=== PATIENT | female | born 2000 | race Hispanic/Latino ===

== ENCOUNTER 2020-05-26 00:39 | Emergency (ER) | payer BC ==
[2020-05-26] MEDS ORDERED: Metoclopramide HCl 10 MG/2 ML VIAL ONE (02:04)
[2020-05-26] MEDS ORDERED: Ketorolac Tromethamine 30 MG/ML VIAL ONE (02:04)
[2020-05-26] MEDS ORDERED: diphenhydrAMINE 50 MG/ML VIAL ONE (02:04)
[2020-05-26 07:00] LABS: #Eosinphils 0.1 10x3/uL (0.0-0.5); #Monocytes 0.3 10x3/uL (0.0-1.1); #Neutrophils 4.4 10x3/uL (1.5-8.4); %Basophils 0.1 % (0.0-2.0); %Eosinophils 1.8 % (0.0-6.0); %Lymphocytes 33.2 % (18.0-47.0); %Monocytes 4.5 % (0.0-10.0); %Neutrophils 59.7 % (40.0-75.0); Hemoglobin 12.1 g/dL (12.0-15.5); Mean Corpuscular HGB CONC 33.7 g/dL (32.0-36.0); Mean Corpuscular Hemoglobin 29.2 pg (27.0-33.0); Mean Corpuscular Volume 86.5 fl (81.6-98.3); Mean Platelet Volume 9.7 fl (7.4-10.4); Platelet Count 449 10x3/uL (150-450); RBC Distribution Width 12.2 % (11.5-14.5); Red Blood Cell (RBC) Count 4.15 10x6/uL (3.90-5.03); White Blood Cell (WBC) Count 7.4 10x3/uL (3.5-10.5)
[2020-05-26 07:02] LABS: ALT (SGPT) 22 U/L (8-55); AST (SGOT) 20 U/L (5-34); Albumin 4.4 g/dL (3.5-5.0); Alkaline Phosphatase 48 U/L (40-100); Anion Gap 15 mmol/L (10-20); BUN (Urea Nitrogen) 6 mg/dL (7.0-18.7); Bilirubin, Total 0.5 mg/dL (0.2-1.2); Calc. Creatinine Clearance 0 mL/min (70-130); Calcium 9.7 mg/dL (7.8-10.44); Carbon Dioxide 26 mmol/L (22-29); Chloride 103 mmol/L (98-107); Globulin 3.3 g/dL (2.4-3.5); Glucose 118 mg/dL (70-105); Protein, Total 7.7 g/dL (6.0-8.3); Sodium 141 mmol/L (136-145)
[2020-05-26 15:16] LABS: Actual Bicarbonate (HCO3v) 26 mEq/L (22-28); Base Excess 0.7 mEq/L (-2.0 to +3.0); Calcium, Ionized (venous) 1.21 mmol/L (1.16-1.32); Chloride (VBG) 103 mmol/L (98-106); Hemoglobin (Hb) 13.1 g/dL (11.7-15.5); Potassium (VBG) 3.21 mmol/L (3.70-5.30); Puncture Site Other Site; Sodium 141.6 mmol/L (133-146); pH (venous) 7.38 (7.32-7.43)
== END 2020-05-26 04:18 | disposition home or self-care (01) ==
LOC: CSHERS 00:39
DX: R51.9 Headache, unspecified (principal); E10.9 Type 1 diabetes mellitus without complications
CPT/HCPCS: 80053; 82010; 82805; 85025; 93005; 93010; 96374; 96375; J1200; J1885; J2765